=== PATIENT | female | born 1955 | race Caucasian/White ===

== ENCOUNTER 2024-06-08 10:27 | Emergency (ER) | payer MEDICARE, SELFPAY ==
[2024-06-08 10:37] VITALS: BP 114/69; PULSE 70; TEMP 37; O2SAT 100; BMI 18.4
[2024-06-08] MEDS: KETOROLAC TROMETHAMINE 30 MG/ML VIAL 15 MG IM (11:16)
[2024-06-08 11:36] LABS: Basophils Percent Auto 0.3 % (0.2-2.0); Eosinophils Percent Auto 0.3 % (0.9-7.0); Hematocrit 32.9 % (36.0-48.0); Hemoglobin 10.4 g/dL (12.0-16.0); Immature Granulocytes Abs Auto 0.03 10^3/uL (0.00-0.03); Immature Granulocytes Pct Auto 0.3 % (0.0-0.5); Lymphocytes Absolute Auto 1.3 10^3/uL (1.2-3.8); Lymphocytes Percent Auto 13.7 % (20.5-60.0); Mean Corpuscular HGB Conc 31.6 g/dL (29.9-35.2); Mean Corpuscular Volume 98.2 fL (81.0-99.0); Mean Platelet Volume 8.7 fL (9.5-13.5); Monocytes Percent Auto 10.3 % (1.7-12.0); Neutrophils Percent Auto 75.1 % (43.0-75.0); Platelet Count 327 10^3/uL (150-450); Red Blood Count 3.35 10^6/uL (4.20-5.40); Red Cell Distribution Width 11.2 % (11.0-15.0); White Blood Count 9.3 10^3/uL (4.0-11.0)
[2024-06-08 11:56] LABS: Alanine Aminotransferase 12 U/L (14-59); Albumin Globulin Ratio 0.8; Albumin Level 2.8 g/dL (3.4-5.0); Alkaline Phosphatase 22 U/L (46-116); Anion Gap 11.3; Aspartate Amino Transferase 12 U/L (15-37); BUN Creatinine Ratio 15.9; Bilirubin Total 0.4 mg/dL (0.2-1.0); Calcium 9.5 mg/dL (8.5-10.1); Carbon Dioxide 29.1 mmol/L (21.0-32.0); Chloride 105 mmol/L (98-107); Estimated GFR (African America >60 (>=60 mL/min/1.73m^2); Estimated GFR (Non-African Ame >60 (>=60 mL/min/1.73m^2); Globulin 3.7 g/dL; Glucose 100 mg/dL (74-106); Potassium 4.4 mmol/L (3.5-5.1); Sodium 141 mmol/L (136-145); Total Protein 6.5 g/dL (6.4-8.2)
[2024-06-08 11:59] LABS: Creatine Kinase 33 U/L (26-192)
--- NOTE | 2024-06-08 12:21 | ED.GENADUL1 ---
HPI HPI - General Adult General Chief complaint: Weakness Stated complaint: BODY ACHES Time Seen by Provider: 06/08/24 10:49 Source: patient Mode of arrival: walk-in Limitations: no limitations History of Present Illness HPI narrative: The patient coming to the ER with almost 2 weeks history of muscle pain although the patient is not a good historian she is not providing exact timing, but it seemed that she was diagnosed recently with COVID-19 but she has been having upper and lower extremity pain mostly with movement denying any other complaint Patient have no other concerns at the moment Related Data Home Medications ?Medication ?Instructions ?Recorded ?Confirmed bupropion HCl 300 mg 24 hr tablet, 300 mg PO QDAY 06/08/24 06/08/24 extended release buspirone 5 mg tablet 5 mg PO BID 06/08/24 06/08/24 cholecalciferol (vitamin D3) 1,250 50,000 unit PO QWEEK 06/08/24 06/08/24 mcg (50,000 unit) capsule levothyroxine 75 mcg tablet 75 mcg PO QAM 06/08/24 06/08/24 losartan 25 mg tablet 25 mg PO QDAY 06/08/24 06/08/24 sotalol 80 mg tablet 40 mg PO Q12H 06/08/24 06/08/24 Previous Rx's ?Medication ?Instructions ?Recorded diclofenac sodium 50 mg 50 mg PO Q12H PRN pain #14 tabs 06/08/24 tablet,delayed release Allergies Allergy/AdvReac Type Severity Reaction Status Date / Time erythromycin base Allergy urticaria Verified 06/08/24 10:36 amoxicillin AdvReac Nausea Verified 06/08/24 10:36 Opioid HPI Opioid Management Most Recent Opioid Data: Last Pain Scale 5 06/08/24 11:16 06/08/24 Last ED Pain Assessment 06/08/24 11:03 Last MAR Pain Assessment 06/08/24 11:16 Review of Systems ROS Status of ROS 10 or more systems reviewed and unremarkable except as noted in history and below PFSH PFSH Social History Little interest or pleasure in doing things: not at all Feeling down, depressed, or hopeless: not at all Exam Narrative Exam Narrative: Nurses notes and vital signs reviewed and patient is not hypoxic. General: Well-appearing and in no apparent distress. Skin: Warm, dry, no pallor noted. No rash. Head: Normocephalic, atraumatic. Neck: Supple, non-tender. Eye: Pupils are equal, round and EOMI. No scleral icterus. Ears, Nose, Mouth, and Throat: TM are clear, no nasal mucosal hypertrophy. Oral mucosa is moist, no posterior oropharynx erythema, uvula is mid-line Cardiovascular: Regular Rate and Rhythm without murmur, gallop or rub. Respiratory: No accessory muscle use or respiratory distress. Lungs are clear to auscultation, no wheezing, rales or rhonchi Chest Wall: no tenderness Back: No midline thoracic or lumbar vertebral tenderness. No CVA tenderness Musculoskeletal: normal ROM, no calf or popliteal tenderness, no lower extremity edema/swelling GI: Abdomen is soft, non-distended. Normal bowel sounds. No masses appreciated. No tenderness to palpation. No rebound, guarding, or rigidity noted. Neurological: A&O x4. No cranial nerve dysfunction observed. No truncal ataxia. Moves all extremities. Sensation intact. Psychiatric: Cooperative and interactive. Normal mood and affect. Constitutional Vital Signs, click to edit/add: Last Vital Signs Temp 98.6 F 06/08/24 10:37 Pulse 70 06/08/24 10:37 Resp 14 06/08/24 10:37 BP 114/69 06/08/24 10:37 Pulse Ox 100 06/08/24 10:37 O2 Del Method Room Air 06/08/24 10:37 Course Vital Signs Vital signs: Vital Signs Temperature 98.6 F 06/08/24 10:37 Pulse Rate 70 06/08/24 10:37 Respiratory Rate 14 06/08/24 10:37 Blood Pressure 114/69 06/08/24 10:37 Pulse Oximetry 100 06/08/24 10:37 Oxygen Delivery Method Room Air 06/08/24 10:37 Temperature 98.6 F 06/08/24 10:37 Pulse Rate 70 06/08/24 10:37 Respiratory Rate 14 06/08/24 10:37 Blood Pressure 114/69 06/08/24 10:37 Pulse Oximetry 100 06/08/24 10:37 Oxygen Delivery Method Room Air 06/08/24 10:37 Medical Decision Making MDM Narrative Medical decision making narrative: The patient examination was benign her pain mostly just when she tried to move her upper and lower extremity and she is not using anything other than Tylenol she was provided with Toradol after which she was feeling better Her presentation could be secondary to COVID-19 her CBC and chemistry shows no acute significant pathology And the patient right now will be discharged home with Voltaren and supportive care And hydration as well The patient is to follow up with primary care physician in next 2-3 days or to return to the emergency department should any of the signs or symptoms worsen or new symptoms develop. The patient agrees with the following Diagnosis and Treatment plan and the patient will be discharged home. Lab Data Labs: Lab Results 06/08/24 Range/Units 11:27 WBC 9.3 (4.0-11.0) 10^3/uL RBC 3.35 L (4.20-5.40) 10^6/uL Hgb 10.4 L (12.0-16.0) g/dL Hct 32.9 L (36.0-48.0) % MCV 98.2 (81.0-99.0) fL MCH 31.0 (26.7-34.0) pg MCHC 31.6 (29.9-35.2) g/dL RDW 11.2 (11.0-15.0) % Plt Count 327 (150-450) 10^3/uL MPV 8.7 L (9.5-13.5) fL Neut % (Auto) 75.1 H (43.0-75.0) % Lymph % (Auto) 13.7 L (20.5-60.0) % [place] % (Auto) 10.3 (1.7-12.0) % Eos % (Auto) 0.3 L (0.9-7.0) % Baso % (Auto) 0.3 (0.2-2.0) % Neut # (Auto) 7.0 H (1.4-6.5) 10^3/uL Lymph # (Auto) 1.3 (1.2-3.8) 10^3/uL [place] # (Auto) 1.0 H (0.3-0.8) 10^3/uL Eos # (Auto) 0.0 (0.0-0.7) 10^3/uL Baso # (Auto) 0.0 (0.0-0.1) 10^3/uL Abs Immat Gran (auto) 0.03 (0.00-0.03) 10^3/uL Imm/Tot Granulo (auto) 0.3 (0.0-0.5) % Sodium 141 (136-145) mmol/L Potassium 4.4 (3.5-5.1) mmol/L Chloride 105 (98-107) mmol/L Carbon Dioxide 29.1 (21.0-32.0) mmol/L Anion Gap 11.3 BUN 14.0 (7.0-18.0) mg/dL Creatinine 0.88 (0.55-1.02) mg/dL Est GFR ( Amer) >60 (>=60 mL/min/1.73m^2) Est GFR (Non-Af Amer) >60 (>=60 mL/min/1.73m^2) BUN/Creatinine Ratio 15.9 Glucose 100 (74-106) mg/dL Calcium 9.5 (8.5-10.1) mg/dL Total Bilirubin 0.4 (0.2-1.0) mg/dL AST 12 L (15-37) U/L ALT 12 L (14-59) U/L Alkaline Phosphatase 22 L (46-116) U/L Total Creatine Kinase 33 (26-192) U/L Total Protein 6.5 (6.4-8.2) g/dL Albumin 2.8 L (3.4-5.0) g/dL Globulin 3.7 g/dL Albumin/Globulin Ratio 0.8 Discharge Plan Discharge Chief Complaint: Weakness Clinical Impression: Muscle pain Patient Disposition: Home, Self-Care Time of Disposition Decision: 12:07 Condition: Good Prescriptions / Home Meds: New diclofenac sodium 50 mg tablet,delayed release (DR/EC) 50 mg PO Q12H PRN (Reason: pain) Qty: 14 0RF No Action bupropion HCl 300 mg tablet extended release 24 hr 300 mg PO QDAY buspirone 5 mg tablet 5 mg PO BID cholecalciferol (vitamin D3) 1,250 mcg (50,000 unit) capsule 50,000 unit PO QWEEK losartan 25 mg tablet 25 mg PO QDAY sotalol 80 mg tablet 40 mg PO Q12H levothyroxine 75 mcg tablet 75 mcg PO QAM Print Language: Tajik Instructions: Musculoskeletal Pain (ED) Referrals: Physician,Non-Staff, MD [Primary Care Provider] - 1 week
[2024-06-08 12:37] VITALS: BP 117/54; PULSE 64; TEMP 37; O2SAT 99
== END 2024-06-08 12:40 | disposition home or self-care (01) ==
PROVIDERS: Emergency Provider Emergency Medicine
DX: M79.10 Myalgia, unspecified site (principal); Z86.16 Personal history of COVID-19
CPT/HCPCS: 36415; 80053; 82550; 85025; 96372; 99284; J1885